=== PATIENT | female | born 1970 | race Two or more races ===

== ENCOUNTER → 2024-09-05 | Outpatient (CLI) | payer MEDICAID, SELFPAY ==
[2024-09-05 11:00] LABS: Basophils # (Auto) 0.1 Thou/mm3 (0.0-0.2); Basophils % (Auto) 1 % (0-2.5); Eosinophils # (Auto) 0.1 Thou/mm3 (0.0-0.5); Eosinophils % (Auto) 1 % (0-10); Hematocrit 41.3 % (36.0-46.0); Hemoglobin 14.2 g/dL (12.0-16.0); Immature Granulocytes % (Auto) 0 % (0-0); Immature Granulocytes Auto 0.01 Thou/mm3 (0.00-0.00); Lymphocytes # (Auto) 3.4 Thou/mm3 (1.0-4.8); Lymphocytes % (Auto) 45 % (10-50); Mean Corpuscular HGB Conc 34.4 g/dl (31.0-37.0); Mean Corpuscular Hemoglobin 29.8 pg (25.0-35.0); Mean Corpuscular Volume 87 fL (80-100); Monocytes # (Auto) 0.4 Thou/mm3 (0.0-0.8); Monocytes % (Auto) 5 % (0-12); Neutrophils # (Auto) 3.6 Thou/mm3 (1.8-7.7); Neutrophils % (Auto) 48 % (37-80); Nucleated Red Blood Cell % 0 /100 WBC (0); Platelet Count 237 Thou/mm3 (140-440); RDW Standard Deviation 39.1 fL (36.4-46.3); Red Blood Count 4.76 Miln/mm3 (4.00-5.20); White Blood Count 7.5 Thou/mm3 (3.6-11.0)
[2024-09-05 11:59] LABS: Alanine Aminotransferase 18 U/L (10-49); Albumin, Serum 4.2 gm/dL (3.5-5.0); Albumin/Globulin Ratio 1.9 (1.2-2.2); Alkaline Phosphatase 95 U/L (46-116); Anion Gap 9 (7-16); Aspartate Amino Transferase 16 U/L (0-34); BUN/Creatinine Ratio 16 Ratio (12-20); Bilirubin,Total 0.4 mg/dL (0.3-1.2); Blood Urea Nitrogen 11 mg/dL (9-23); Calcium 9.6 mg/dL (8.3-10.6); Calcium (Corrected) 9.6 mg/dL (8.5-10.1); Carbon Dioxide 27.8 mMol/L (20.0-31.0); Chloride 106 mMol/L (98-107); Creatinine (Component) 0.7 mg/dL (0.6-1.3); Globulin 2.2 gm/dL (2.3-3.5); Glucose 184 mg/dL (74-106); Osmolality,Calculated 289 (275-295); Potassium 4.6 mMol/L (3.4-5.1); Sodium 143 mMol/L (136-145); Total Protein 6.4 gm/dL (5.7-8.2); eGFR > 60 See Note
== END | disposition home or self-care (01) ==
LOC: SCTO 10:15
PROVIDERS: PCP Family Medicine; Referring Provider Internal Medicine Hematology & Oncology; Visit Provider Internal Medicine Hematology & Oncology
DX: C18.9 Malignant neoplasm of colon, unspecified (principal)
CPT/HCPCS: 36415; 80053; 82378; 85025

== ENCOUNTER 2024-09-10 11:23 | Outpatient (RCR) | payer MEDICAID, SELFPAY ==
--- NOTE | 2024-09-11 00:35 | CTCFLWUP_ITS ---
Patient: BRITNEY SALAZAR : 1970 Page 3 of 5 FOLLOW UP NOTE DATE OF SERVICE: 09/10/2024 NAME: BRITNEY SALAZAR ACCOUNT: [id number] : 1970 AGE: 54 INTERVAL HISTORY: ONCOLOGY HISTORY: DIAGNOSIS: Malignant neoplasm of colon, unspecified [ICD10] C18.9 Stage I (T2) rectal adenocarcinoma (04/04/2019). Status post surgery in [place] Status post resection with colostomy bag placement (April 04, 2019) Multiple biopsies of the presacral mass without any evidence of recurrence for malignancy (05/12/2021, 09/10/2020 06/22/2020, 04/29/2020) DATE OF DIAGNOSIS: PATHOLOGY: April 04, 2019 (translated below from [facility] pathology report) moderately differentiated rectal adenocarcinoma 5.8 x 3.0 cm on the longer axis originated from a tubulovillous adenomatous polyp with high-grade dysplasia infiltrates down to the internal muscular capsule does not affect the external muscular capsule not the serosa all the perirectal adipose tissue no activity on the largest specimen section margins no signs of metastasis in the 20 dissected lymph nodes remaining tissue with moderate chronic proctitis smaller fragment anorectal tissue with chronic inflammation hemorrhoidal vessels with ectasia but no thrombosis no associated lesions STAGE/TNM: TREATMENT HISTORY: Care?Plan Start?Date Cycle Day Intent HISTORY OF PRESENT ILLNESS: Britney Salazar is a 53-year-old [place]an-speaking female with history of hysterectomy in 2013 has the following oncology history. 2018: Patient has been having slowly worsening rectal bleeding accompanied by diarrhea. Due to insurance reasons she was not able to see any physicians. April 2020: Patient went to [place] and had a colonoscopy. She was found to have malignant appearing tumor in the rectal area. April 04, 2019: Patient had resection of the rectal cancer with closure of the anus and colostomy bag placement. Surgical pathology specimen showed the following. 02/25/2020: CT scan of the chest abdomen and pelvis with IV contrast? 03/17/2020: bilateral screening mammograms as well as right breast ultrasound showed benign findings. 04/29/2020: CT-guided biopsy of the presacral mass? 05/22/2020: PET CT scan? 06/22/2020: CT-guided biopsy of the soft tissue presacral mass? 06/30/2020: MRI of the abdomen and pelvis with IV contrast?MRI of the abdomen negative for metastatic disease. 06/22/[address]-guided biopsy was negative for malignancy. 7 different levels were examined at [facility] OTHER MEDICAL HISTORY/CONDITIONS: FAMILY HISTORY: ?Clone Family Hx? 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 Lantus - 22 Units As directed 2. metformin - 1,000 mg Twice a Day?Palabra Meds? Medications Last Reconciled by Lziy Arriaga MA on 09/10/2024 ALLERGIES: Morphine sulfate; sulfamethoxazole-trimethoprim; MORPHINE SULFATE/PF REVIEW OF SYSTEMS: A complete 14-point review of systems was performed and is negative except as noted in interval history. PHYSICAL EXAMINATION: VITAL SIGNS: Temperature?96.8, B/P?133/86, Oxygen?Saturation?97% Weight?166.6?lbs PAIN: 3 - Between mild and moderate pain ECOG Performance Status: 0 - Asymptomatic and fully active GENERAL APPEARANCE: Appears well, in no apparent distress, appropriately interactive. HEENT: Normocephalic, no temporal wasting, normal conjunctiva, no scleral icterus, normal hearing, lips without lesions, neck normal range of motion. CARDIOVASCULAR: Not assessed. PULMONARY: Normal respiratory effort, no respiratory distress or use of accessory muscles, speaking in full sentences, no tachypnea. EXTREMITIES: No pedal edema or cyanosis. SKIN: Normal skin appearance. NEUROLOGIC: Alert and oriented x4. PSHYCHIATRIC: Appropriate affect, mood normal, behavior normal, intact thought and speech. LABORATORY DATA: I have personally reviewed and interpreted each of the patient?s relevant lab tests, abnormal findings are below: Date 02/06/24 09/05/24 ??WHITE?BLOOD?COUNT?(Thou/mm3) ? 7.5 ??RED?BLOOD?COUNT?(Miln/mm3) ? 4.76 ??HEMOGLOBIN?(gm/dl) ? 14.2 ??HEMATOCRIT?(%) ? 41.3 ??PLATELET?COUNT?(Thou/mm3) ? 237 ??NEUTROPHILS?%,?AUTO?(%) ? 48 ??LYMPH?%,?AUTO?(%) ? 45 ??NEUTROPHILS,?AUTO?(Thou/mm3) ? 3.6 ??GLUCOSE,RANDOM?(mg/dL) ? 184?H ??BLOOD?UREA?NITROGEN?(mg/dL) ? 11 ??CREATININE?(mg/dL) ? 0.70 ??SODIUM?(mmol/L) ? 143 ??POTASSIUM?(mmol/L) ? 4.6 ??CHLORIDE?(mmol/L) ? 106 ??CrCl?(CandG)?(ml/min) ? 95.63 ??AST/SGOT?(Unit/L) ? 16 ??ALT/SGPT?(Unit/L) ? 18 ??ALKALINE?PHOSPHATASE?(Unit/L) ? 95 ??BILIRUBIN,?TOTAL?(mg/dL) ? 0.4 ??PROTEIN?TOTAL?(gm/dl) ? 6.4 ??ALBUMIN,?SERUM?(gm/dl) ? 4.2 ??GLOBULIN?(gm/dl) ? 2.2?L ??ALBUMIN/GLOBULIN?RATIO ? 1.9 ??CALCIUM,?SERUM?(mg/dL) ? 9.6 ??CALCIUM?SERUM?(CORRECTED)?(mg/dL) ? 9.6 ??CEA?(O*)?(ng/ml) 1.1 1.0 ASSESSMENT/PLAN: #1 stage I T2 rectal adenocarcinoma status post resection closure of anus and ostomy placement in April 2019 in [place] Patient's final pathology report from [place] was very unreliable and I am not sure if patient even had a malignancy or it was just a high-grade polyp along with ulcerations and hemorrhoids The patient had repeat biopsy at [facility] on 01/19/2024 and was reported as benign according to the notes. Recent PET/CT scan done on 09/14/2023 showed weakly hypermetabolic presacral mass which has increased in size as documented above. A 9.5 mm hypermetabolic nodule in the right posterior pelvis with maximum SUV of 10.7 and a hypermetabolic 7 mm left posterior upper cervical chain lymph node with a maximum SUV of 6.34 were noted on the recent PET CT scan done on 05/24/2023. The radiologist felt that these lesions are too small to biopsy. Persistent pain in the pelvic region happening multiple times a day. Patient had a colonoscopy done in [place] few months ago. I do not have the procedure report. Repeat CT-guided biopsy of the enlarging presacral mass is again negative for malignancy (05/12/2021). CT-guided pelvic cyst aspiration showed atypical cells as described above (09/10/2020). Previous CT-guided biopsy of the presacral mass is nondiagnostic as described above (06/22/2020). MRI of the pelvis showed 6.6 x 4.3 x 5.7 cm superior presacral cystic septated mass. PET CT scan showed right upper lobe soft tissue mass as well as pelvic masses as described above. CBC CMP CEA CT abdomen and pelvis to see any recurrence rogelio RETURN TO CLINIC: I will see her back in the clinic in 3 months. BILLING AND COMPLIANCE: I reviewed external records from providers outside my specialty as summarized above. I spent a total of 50 minutes on this patient?s care on the day of their visit excluding time spent related to any billed procedures. This time includes time spent with the patient as well as time spent documenting in the medical record, reviewing patients records and tests, obtaining history, placing orders, communicating with other healthcare professionals, counseling the patient, family or caregiver, and/or care coordination for the diagnoses above. Electronically Signed by: Damien Portillo MD T: 12:32 AM CC: Myrtle?Gabriel,?Deandre,? PCP: Deandre Rios Alisia Referring: Deandre Rios Alisia This document was completed utilizing speech recognition software. Grammatical errors, random word insertions, pronoun errors, and incomplete sentences are an occasional consequence of this system due to software limitations, ambient noise, and hardware issues. Any formal questions or concerns about the content, text or information contained within the body of this dictation should be directly addressed to the provider for clarification.
== END 2024-09-30 23:59 | disposition home or self-care (01) ==
LOC: SCTC 11:23
PROVIDERS: PCP Family Medicine; Referring Provider Physician Assistant; Visit Provider Internal Medicine Hematology & Oncology
DX: C18.9 Malignant neoplasm of colon, unspecified (principal); R10.2 Pelvic and perineal pain; R19.09 Other intra-abdominal and pelvic swelling, mass and lump
CPT/HCPCS: 99212; G0463

== ENCOUNTER → 2024-10-30 | Outpatient (CLI) | payer MEDICAID, SELFPAY ==
--- NOTE | 2024-10-30 11:00 | XR_ITS ---
Examination: CT abdomen with intravenous contrast CT pelvis with intravenous contrast 2-D coronal reconstructions 2-D sagittal reconstructions Date and time of exam:October 30, 2024 1254 hours Comparison PET/CT scan September 14, 2023, CT abdomen pelvis October 13, 2020 INDICATIONS: Diagnosis malignant neoplasm colon 2019 restaging. CTDI: vol (mGy) 7.75 DLP: (mGycm) 116 Technique: Multiple axial sections of the abdomen and pelvis have been obtained. 64 slice high-resolution scanner used. 3 mm axial sections have been obtained, post intravenous injection 60 cc [id number] 2-D sagittal, coronal reconstructions obtained. Low dose protocols were performed. One or more of the following dose reduction techniques were used; automated exposure control, adjustment of the mA and/or KV according to patient size, use of iterative reconstruction technique. Findings: No focal liver or splenic lesions No gallstones No pancreatic or adrenal mass No renal or ureteral calculi, no hydronephrosis No interval abdominal or pelvic lymphadenopathy Left ileostomy Stable presacral cystic mass compared to PET CT September 14, 2023 The presacral solid mass on PET CT scan September 14, 2023 measures 34 x 17 mm compared to 39 x 18 mm on PET/CT scan September 14, 2023 Moderate osteopenia IMPRESSION: No interval abdominal or pelvic lymphadenopathy Stable soft tissue presacral mass compared to PET CT scan September 14, 2023
[2024-10-30 12:26] LABS: Alanine Aminotransferase 35 U/L (10-49); Albumin, Serum 4.2 gm/dL (3.5-5.0); Albumin/Globulin Ratio 1.6 (1.2-2.2); Alkaline Phosphatase 103 U/L (46-116); Anion Gap 8 (7-16); Aspartate Amino Transferase 25 U/L (0-34); BUN/Creatinine Ratio 17 Ratio (12-20); Bilirubin,Total 0.5 mg/dL (0.3-1.2); Blood Urea Nitrogen 12 mg/dL (9-23); Carbon Dioxide 25.9 mMol/L (20.0-31.0); Chloride 107 mMol/L (98-107); Creatinine (Component) 0.7 mg/dL (0.6-1.3); Globulin 2.6 gm/dL (2.3-3.5); Glucose 183 mg/dL (74-106); Osmolality,Calculated 285 (275-295); Potassium 4.3 mMol/L (3.4-5.1); Sodium 141 mMol/L (136-145); Total Protein 6.8 gm/dL (5.7-8.2); eGFR > 60 See Note
== END | disposition home or self-care (01) ==
PROVIDERS: Referring Provider Internal Medicine Hematology & Oncology; Visit Provider Internal Medicine Hematology & Oncology
DX: M79.9 Soft tissue disorder, unspecified (principal); C18.9 Malignant neoplasm of colon, unspecified
CPT/HCPCS: 36415; 74177; 80053; A4649; Q9967